=== PATIENT | female | born 1975 | race Two or more races ===

== ENCOUNTER 2019-04-28 16:20 | Emergency (ER) | payer SELFPAY ==
[~2019-04-28] VITALS: Ht 160 cm; Wt 100.0 kg
[2019-04-28 16:29] VITALS: BP 135/92
== END 2019-04-28 18:18 | disposition left against medical advice (07) ==
LOC: ER 16:20
DX: M79.675 Pain in left toe(s) (principal); R10.9 Unspecified abdominal pain; M54.5 Low back pain; Z53.21 Procedure and treatment not carried out due to patient leaving prior to being seen by health care provider